=== PATIENT | female | born 1940 | race Caucasian/White ===

== ENCOUNTER 2016-04-03 10:46 | Outpatient (CLI) | payer MEDICARE, OTHER | END 2016-04-03 10:47 | disposition home or self-care (01) | DX: Z12.31 Encounter for screening mammogram for malignant neoplasm of breast (principal) ==

== ENCOUNTER 2016-07-21 08:00 | Outpatient (CLI) | payer MEDICARE, OTHER | END 2016-07-21 08:01 | DX: E78.00 Pure hypercholesterolemia, unspecified (principal) ==

== ENCOUNTER 2018-06-06 11:04 | Outpatient (CLI) | payer MEDICARE, OTHER ==
[2018-06-06] MEDS ORDERED: IOPAMIDOL-300 100 ML VIAL ONE (11:36)
[2018-06-07] MEDS ORDERED: IOPAMIDOL-300 100 ML VIAL IVP ONE (08:39)
--- NOTE | 2018-06-07 14:05 | CT Report ---
Reason: GROSS HEMATURIA Procedure Date: 06/06/2018 Accession Number: [id number] / [id number] Procedure: CT - IVP CPT Code: FULL RESULT: EXAM: CT ABDOMEN AND PELVIS WITHOUT AND WITH CONTRAST (CT IVP) EXAM DATE: 06/06/2018 12:35 PM. Noncontrast scans were performed 06/07/2018 at 1206. Exam interpreted with images from 06/06/2018. CLINICAL HISTORY: GROSS HEMATURIA. COMPARISONS: ABDOMEN/PELVIS W/ 06/06/2018 11:49 AM ABDOMEN/PELVIS W/ 03/09/2015 7:40 PM. TECHNIQUE: Routine helical imaging was performed through the kidneys, ureters and bladder in the precontrast, postcontrast and delayed phase. IV Contrast: 100 cc of Isovue-300. Reconstructions: Coronal and sagittal. In accordance with CT protocol optimization, one or more of the following dose reduction techniques were utilized for this exam: automated exposure control, adjustment of mA and/or KV based on patient size, or use of iterative reconstructive technique. FINDINGS: Lung Bases: Unremarkable. Right Kidney/Ureter: No stones or hydronephrosis. 2 cm water density cyst of the lower pole corticomedullary space. Exophytic thin-walled 1 cm cyst also water density of the anterior lower pole. There are several scattered upper and lower pole subcentimeter hypodensities, too small to characterize likely additional cysts. No enhancing solid lesions appreciated. No hydroureter. Left Kidney/Ureter: There is a 6 cm thin-walled simple cyst of the posterior lower pole and a 2.5 cm cyst of the anterior lower pole. Several subcentimeter hypodensities of the upper cortex likely additional cysts. No solid enhancing masses. No hydroureter. Other Solid Organs: The liver, spleen, pancreas, gallbladder, and adrenal glands are unremarkable.The bile ducts are unremarkable. Peritoneal Cavity/Bowel: There is colonic diverticulosis without CT evidence of diverticulitis. No free fluid, free air or adenopathy. No masses. Bowel loops are unremarkable. Pelvic Organs: No bladder stones, obstruction or masses. The visualized pelvic organs are unremarkable. Vasculature: Normal. Bones: Chronic-appearing osteoporotic compression fracture superior endplate of the L2 vertebral body is new since 2015. Stable compression fracture of T12 compared to the 2015 studies. Other: None. IMPRESSION: 1. No urinary tract masses, stones or obstruction. Simple-appearing renal cysts as described. Etiology of hematuria is not identified. RADIA
== END 2018-06-06 11:05 | disposition home or self-care (01) ==
LOC: DI 11:04
PROVIDERS: ATTEND Registered Nurse
DX: R31.0 Gross hematuria (principal); Q61.02 Congenital multiple renal cysts
CPT/HCPCS: 74178; Q9967

== ENCOUNTER 2018-07-29 13:21 | Outpatient (CLI) | payer MEDICARE, OTHER ==
--- NOTE | 2018-08-01 08:35 | Mammography Report ---
Reason: SCREENING MAMMO Procedure Date: 07/29/2018 Accession Number: [id number] / [id number] Procedure: EDY - Screening Mammo w/Pola CPT Code: FULL RESULT: EXAM: Screening Mammo w/Pola DATE: 07/29/2018 1:51 PM CLINICAL HISTORY: Screening encounter. No reported risk factors. TECHNIQUE: (B) - Bilateral CC, laterally exaggerated CC, MLO views were obtained. COMPARISON: 04/03/2016 through 09/09/2012. PARENCHYMAL PATTERN: (D) - The breast(s) demonstrate(s) heterogeneously dense fibroglandular parenchyma. FINDINGS: There are coarse typically benign calcifications. There are no suspicious masses, calcifications, or areas of distortion. IMPRESSION: Benign findings. BI-RADS category 2. RECOMMENDATION: (ANNUAL) - Recommend routine annual screening mammography. BI-RADS CATEGORY: (2) - Benign Findings. STANDARD QUALIFYING STATEMENTS: 1. This examination was not reviewed with the aid of Computer-Aided Detection (CAD). 2. A negative or benign imaging report should not preclude biopsy if clinically suspicious findings are present. 3. Dense breasts may obscure an underlying neoplasm. 4. This examination was reviewed with the aid of 3D breast imaging (tomosynthesis).
== END 2018-07-29 13:22 | disposition home or self-care (01) ==
LOC: DI 13:21
PROVIDERS: ATTEND Registered Nurse
DX: Z12.31 Encounter for screening mammogram for malignant neoplasm of breast (principal)
CPT/HCPCS: 77063; 77067

== ENCOUNTER 2018-07-29 13:21 | Outpatient (CLI) | payer MEDICARE, OTHER ==
--- NOTE | 2018-07-29 14:39 | DEXA Report ---
Reason: OSTEOPOROSIS Procedure Date: 07/29/2018 Accession Number: [id number] / [id number] Procedure: DEX - Dexa Spine and/or Hip CPT Code: FULL RESULT: EXAM: Dexa Spine and/or Hip DATE: 07/29/2018 2:07 PM CLINICAL HISTORY: OSTEOPOROSIS FOLLOW-UP TECHNIQUE: Dual energy x-ray absorptiometry (DXA) was performed on a [employer] System. Regions measured are the AP Spine, femoral neck, and if needed forearm. COMPARISON: 02/06/2016. In accordance with the International Society for Clinical Densitometry (ISCD) guidelines, data from previous exams may be reanalyzed using current recommendations and techniques. This is done to allow a more accurate basis for comparison with the current study. FINDINGS: The data for the lumbar spine is as follows: BMD (g/cm/cm) T-SCORE Z-SCORE REGION L1 0.589 -4.5 -2.5 L2 0.979 -1.8 0.1 L3 0.861 -2.8 -0.8 L4 0.972 -1.9 0.1 TOTAL 0.875 -2.5 -0.6 NOTE: All evaluable vertebrae are used for classification The data for the hip is as follows: BMD (g/cm/cm) T-SCORE Z-SCORE REGION Neck 0.612 -3.1 -0.9 TOTAL 0.541 -3.7 -1.7 NOTE: The femoral neck or total proximal femur, whichever is lowest, is used for classification. DXA RESULTS SUMMARY: Spine SCAN DATE AGE BMD CHANGE VS CHANGE VS PREVIOUS PREVIOUS % 07/29/2018 78 0[age]875 0.045* 5.4* 02/06/2016 [age] 0.830 * Denotes significant change at the 95% confidence level. Denotes dissimilar scan types or analysis methods. DXA RESULTS SUMMARY: Hip SCAN DATE AGE BMD CHANGE VS CHANGE VS PREVIOUS PREVIOUS % 07/29/2018 78 0.541 -0.036* -6.2* 02/06/2016 [age] 0.577 * Denotes significant change at the 95% confidence level. Denotes dissimilar scan types or analysis methods. IMPRESSION: THE WHO CLASSIFICATION BASED ON THE INTERNATIONAL REFERENCE STANDARD IS OSTEOPOROSIS (REFERENCE TOTAL LEFT HIP BONE MINERAL DENSITY). THE FRACTURE RISK IS HIGH. RECOMMENDATION: Patients with diagnosis of osteoporosis or osteopenia should have regular bone mineral density assessment. For those eligible for Medicare, routine testing is allowed once every 2 years. Testing frequency can be increased for patients who have rapidly progressing disease or for those who are receiving medical therapy to restore bone mass. COMMENT: World Health Organization (WHO) definitions for osteoporosis and osteopenia: NORMAL BMD: T-score at -1.0 or higher, fracture risk is low OSTEOPENIA BMD: T-score between -1.0 and -2.5, fracture risk is increased. OSTEOPOROSIS BMD: T-score at -2.5 or lower, fracture risk is high. National Osteoporosis Foundation recommends: 1. Obtain adequate dietary calcium (at least 1200 mg per day) and vitamin D (400-800 international units per day). 2. Participate, as appropriate, in regular weightbearing and muscle-strengthening exercise. 3. Avoid tobacco use and reduce alcohol and caffeine intake. 4. For more detailed information see the website at www.NOF.org.
== END 2018-07-29 13:22 | disposition home or self-care (01) ==
LOC: DI 13:21
PROVIDERS: ATTEND Registered Nurse
DX: M81.0 Age-related osteoporosis without current pathological fracture (principal)
CPT/HCPCS: 77080

== ENCOUNTER 2018-11-19 00:46 | Outpatient (CLI) | payer MEDICARE, OTHER | END 2018-11-19 00:47 | disposition critical access hospital (66) | LOC: EMS 00:46 | PROVIDERS: ATTEND Surgery | DX: R42 Dizziness and giddiness (principal) | CPT/HCPCS: A0425; A0429 ==

== ENCOUNTER 2018-11-19 01:17 | Emergency (ER) | payer MEDICARE, OTHER ==
--- NOTE | 2018-11-19 01:59 | ED Physician Documentation ---
History of Present Illness - Stated complaint Stated Complaint: DIZZY - Chief complaint Chief Complaint: Heent - History obtained from History obtained from: Patient - History of Present Illness Timing: Yesterday Pain level max: 0 Pain level now: 0 Improved by: rest (lying still) Worsened by: movement, particularly turning head to side (rotation) - Additonal information Additional information: BIBA for dizziness which patient describes as sensation of "room spinning". Patient was in yoga class yesterday morning and upon standing up, she had sudden onset of the dizziness. She thus sat back down and eventually the symptoms subsided and she was able to stand and ambulate without symptoms. The symptoms seemed to have resolved completely until tonight while she was in bed when the dizziness suddenly returned when she turned her head to the side. She had mild nausea but no vomiting. Review of Systems Constitutional: reports: Reviewed and negative Eyes: denies: Loss of vision, Decreased vision Ears: denies: Loss of hearing, Ear pain, Tinnitus/ringing Cardiac: reports: Reviewed and negative Respiratory: reports: Reviewed and negative GI: reports: Nausea. 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 : None HEENT: Other Psych: None Musculoskeletal: None Derm: None - Past Surgical History Past Surgical History: Yes General: Other Cardiovascular: AICD - Present Medications Home Medications: Ambulatory Orders Medication Instructions Recorded Confirmed Aspirin [Aspir 81] 81 mg ORAL DAILY 03/09/15 03/09/15 Clopidogrel Bisulfate [Plavix] 75 mg ORAL DAILY 03/09/15 03/09/15 Losartan [Cozaar] 25 mg ORAL DAILY 03/09/15 03/09/15 Metoprolol Tartrate [Lopressor] 37.5 mg ORAL BID 03/09/15 03/09/15 Simvastatin 20 mg ORAL QPM 03/09/15 03/09/15 Meclizine [Antivert] 25 mg PO Q6H PRN #20 tablet 11/19/18 - Allergies Allergies/Adverse Reactions: Allergies Allergy/AdvReac Type Severity Reaction Status Date / Time morphine Allergy Itching Verified 11/19/18 01:26 - Social History Does the pt smoke?: No Smoking Status: Never smoker Does the pt drink ETOH?: Yes Does the pt have substance abuse?: No - Immunizations Immunizations are current?: Yes - POLST Patient has POLST: No PD ED PE NORMAL - Vitals Vital signs reviewed: Yes - General General: Alert and oriented X 3, No acute distress, Well developed/nourished - HEENT HEENT: PERRL, EOMI, Moist mucous membranes - Neck Neck: Supple, no meningeal sign - Cardiac Cardiac: RRR, No murmur - Respiratory Respiratory: No respiratory distress, Clear bilaterally - Abdomen Abdomen: Soft, Non tender - Neuro Neuro: Alert and oriented X 3, sharemilker 2-12 intact, No motor deficit, No sensory deficit, Normal speech Results - Vitals Vitals: Vital Signs - 24 hr 11/19/18 11/19/18 11/19/18 01:23 01:35 03:01 Temperature 36.7 C Heart Rate 64 61 60 Respiratory 16 16 16 Rate Blood Pressure 132/88 H 118/88 H 115/82 H O2 Saturation 96 94 95 11/19/18 11/19/18 03:23 03:25 Temperature Heart Rate Respiratory 17 17 Rate Blood Pressure O2 Saturation Oxygen O2 Source Room air - EKG (time done) No standard instances Rate: Rate (enter#) (61) Rhythm: NSR [place]: Normal Intervals: Normal [place] QRS: Normal Ischemia: Q waves (V1-V4), T wave inversion (V2-V5, flat T V6, I, aVL) Compare to prior EKG: Unchanged from prior EKG (03/09/15) - Labs Labs: Laboratory Tests 11/19/18 11/19/18 02:38 02:38 WBC 6.4 RBC 4.31 Hgb 13.8 Hct 41.4 MCV 96.1 MCH 32.0 H MCHC 33.3 RDW 12.6 Plt Count 263 MPV 9.8 Neut # (Auto) 3.8 Lymph # (Auto) 1.5 [place] # (Auto) 0.9 Eos # (Auto) 0.2 Baso # (Auto) 0.1 Absolute Nucleated RBC 0.00 Nucleated RBC % 0.0 Sodium 139 Potassium 3.8 Chloride 106 Carbon Dioxide 24 Anion Gap 9.0 BUN 25 H Creatinine 0.6 Estimated GFR (MDRD) 97 Glucose 111 H Calcium 10.4 H - Rads (name of study) CT head Radiology: Prelim report reviewed, See rad report PD MEDICAL DECISION MAKING - ED course Complexity details: reviewed old records, reviewed results, re-evaluated patient, considered differential, d/w patient ED course: HPI strongly s/o peripheral vertigo and she reported resolution of symptoms after PO antivert. CT head unremarkable (h/o CVA), and blood tests were also reassuring (no significant abnormalities) Departure - Departure Disposition: 01 Home, Self Care Clinical Impression: Vertigo Condition: Good Instructions: Meclizine, ED Vertigo Unspecified Follow-Up: Carolina Blunt ARNP [Primary Care Provider] - Prescriptions: Meclizine [Antivert] 25 mg PO Q6H PRN #20 tablet PRN Reason: Vertigo Comments: In addition to the prescribed medication (meclizine), you can try the Jagruti maneuver if you have more episodes of vertigo. There are several good internet videos on how you can perform this maneuver at home. One example can be found by searching on youtube "[facility] right jagruti". There is also a left jagruti video. You should perform the maneuver according to which side the vertigo is worse (ie- if the vertigo is worse when you turn your head to the right, perform the right jagruti maneuver, or vice-versa). Discharge Date/Time: 11/19/18 04:00
[2018-11-19] MEDS ORDERED: MECLIZINE 12.5 MG TABLET PO STA (02:12)
[2018-11-19 02:46] LABS: BASOPHILS # (AUTO) 0.1 10^3/uL (0.0-0.1); BASOPHILS % (AUTO) 0.8 %; EOSINOPHILS # (AUTO) 0.2 10^3/uL (0.0-0.7); EOSINOPHILS % (AUTO) 2.8 %; HGB - HEMOGLOBIN 13.8 g/dL (12.0-16.0); LYMPHOCYTES # (AUTO) 1.5 10^3/uL (1.5-3.5); LYMPHOCYTES % (AUTO) 22.6 %; MEAN CORPUSCULAR HGB CONC 33.3 g/dL (32.0-36.0); MEAN CORPUSCULAR VOLUME 96.1 fL (81.0-99.0); MEAN PLATELET VOLUME 9.8 fL (7.9-10.8); MONOCYTES # (AUTO) 0.9 10^3/uL (0.0-1.0); MONOCYTES % (AUTO) 13.8 %; NEUTROPHILS # (AUTO) 3.8 10^3/uL (1.5-6.6); NEUTROPHILS % (AUTO) 59.7 %; PLT - PLATELET COUNT 263 10^3/uL (130-450); RED BLOOD COUNT 4.31 10^6/uL (4.20-5.40); RED CELL DISTRIBUTION WIDTH 12.6 % (12.0-15.0); WHITE BLOOD COUNT 6.4 x10^3/uL (4.8-10.8)
--- NOTE | 2018-11-19 02:48 | CT Report ---
Reason: dizziness Procedure Date: 11/19/2018 Accession Number: [id number] / [id number] Procedure: CT - HEAD WO CPT Code: FULL RESULT: EXAM: CT HEAD EXAM DATE: 11/19/2018 02:35 AM. CLINICAL HISTORY: Dizziness. COMPARISON: None. TECHNIQUE: Multiaxial CT images were obtained from the foramen magnum to the vertex. Reformats: Sagittal and coronal. IV contrast: None. In accordance with CT protocol optimization, one or more of the following dose reduction techniques were utilized for this exam: automated exposure control, adjustment of mA and/or KV based on patient size, or use of iterative reconstructive technique. FINDINGS: Parenchyma: No intraparenchymal hemorrhage. No evidence of mass, midline shift, or CT findings of acute infarction. Stearns-white differentiation is distinct. Mild atrophy and chronic microangiopathic white matter changes are evident. Small focal area of encephalomalacia is present along genu of corpus callosum, possibly related to remote infarct. Extraaxial Spaces: Normal for age. No subdural or epidural collections identified. Ventricles: The ventricles and cortical sulci are enlarged, consistent with age-related tissue loss. Sinuses and orbits: Imaged paranasal sinuses, orbits, and mastoids show no significant abnormality. Bones: No evidence of fracture or calvarial defect. Other: None. IMPRESSION: 1. No evidence of acute intracranial abnormality. 2. Age-related atrophy and chronic microangiopathic white matter changes. RADIA
[2018-11-19 02:54] LABS: CALCIUM 10.4 mg/dL (8.5-10.3); CREATININE 0.6 mg/dL (0.4-1.0)
[2018-11-19 03:03] VITALS: BP 115/82
== END 2018-11-19 04:00 | disposition home or self-care (01) ==
LOC: EDUNIT# → ED 01:17
DX: R42 Dizziness and giddiness (principal)
CPT/HCPCS: 36415; 70450; 80048; 85025; 93005; 99284; A9270

== ENCOUNTER 2019-09-22 12:14 | Outpatient (CLI) | payer MEDICARE, OTHER ==
--- NOTE | 2019-09-25 09:29 | Mammography Report ---
BILATERAL DIGITAL SCREENING MAMMOGRAM 3D/2D: 09/22/2019 CLINICAL: Routine screening. Comparison is made to exams dated: 07/29/2018 mammogram, 04/03/2016 mammogram, and 03/04/2015 mammogram - [facility]. The tissue of both breasts is heterogeneously dense. This may lower t he sensitivity of mammography. No significant masses, calcifications, or other findings are seen in either breast. There has been no significant interval change. IMPRESSION: NEGATIVE There is no mammographic evidence of malignancy. A 1 year screening mammogram is recommended. This exam was interpreted at Station ID: [id number]. NOTE: For mammograms, a report in lay terms will be sent to the patient. Approximately 15% of breast malignancies will not be visualized mammographically. In the management of a palpable breast mass, a negative mammogram must not discourage biopsy of a clinically suspicious lesion. Electronically Signed By: Hannah aguilar/alta:09/22/2019 13:54:52 ACR BI-RADS Category 1: Negative 3341F PARENCHYMAL PATTERN: (D) - The breast(s) demonstrate(s) heterogeneously dense fibroglandular stewart smith. BI-RADS CATEGORY: (1) - 1 RECOMMENDATION: (ANNUAL) - Recommend routine annual screening mammography. [id number] 1 year screening LATERALITY: (B)
== END 2019-09-22 12:15 | disposition home or self-care (01) ==
LOC: DI 12:14
PROVIDERS: ATTEND Physician Assistant
DX: Z12.31 Encounter for screening mammogram for malignant neoplasm of breast (principal)
CPT/HCPCS: 77063; 77067

== ENCOUNTER 2020-08-02 12:49 | Outpatient (CLI) | payer MEDICARE, OTHER ==
--- NOTE | 2020-08-02 15:55 | DEXA Report ---
PROCEDURE: Dexa Spine and/or Hip INDICATIONS: OSTEOPOROSIS TECHNIQUE: Dual energy x-ray absorptiometry (DXA) was performed on a [employer] System. Regions measur ed are the AP Spine, femoral neck, and if needed forearm. COMPARISON: DEXA, 07/29/2018. FINDINGS: Lumbar Spine: Bone Mineral Density 0.857 g/cm/cm,T score -2.7. Left Hip: Bone Mineral Density 0.576 g/cm/cm,T score -3.4. Left Femoral Neck: Bone Mineral Density 0.602 g/cm/cm, T score -3.1. (T score greater or equal to -1.0: NORMAL) (T score from -1.1 to -2.4: OSTEOPENIA) (T score less than or equal to -2.5 to: OSTEOPOROSIS) Impression: Based on WHO criteria, the patient is osteoporotic. Compared to the last exam on 07/30/19 19, the bone mineral density of the lumbar spine is not significantly changed. The bone mineral densi ty of the left hip is improved. Patients with diagnosis of osteoporosis or osteopenia should have regular bone mineral density assess ment. For those eligible for Medicare, routine testing is allowed once every 2 years. Testing frequ ency can be increased for patients who have rapidly progressing disease or for those who are receivin g medical therapy to restore bone mass. Reviewed by: Mel Quintero MD on 08/02/2020 3:54 PM PDT Approved by: Mel Quintero MD on 08/02/2020 3:54 PM PDT Station ID: [id number]
== END 2020-08-02 12:50 | disposition home or self-care (01) ==
LOC: DI 12:49
PROVIDERS: ATTEND Registered Nurse
DX: M81.0 Age-related osteoporosis without current pathological fracture (principal)

== ENCOUNTER 2020-10-11 10:17 | Outpatient (CLI) | payer MEDICARE, OTHER ==
[2020-10-11 10:51] LABS: ALBUMIN 4.3 g/dL (3.2-5.5); ALBUMIN/GLOBULIN RATIO 1.5 (1.0-2.2); ALKALINE PHOSPHATASE 69 IU/L (42-121); ALT ALANINE AMINOTRANSFERASE 27 IU/L (10-60); AST ASPARTATE AMINOTRANSFERASE 27 IU/L (10-42); BILIRUBIN,TOTAL 0.9 mg/dL (0.2-1.0); BUN - BLOOD UREA NITROGEN 15 mg/dL (6-20); CALCIUM 9.3 mg/dL (8.5-10.3); CARBON DIOXIDE - CO2 28 mmol/L (21-32); CHLORIDE 103 mmol/L (101-111); CHOL/HDL RATIO 2.3 (<4.4); CHOLESTEROL 149 mg/dL; CREATININE 0.7 mg/dL (0.4-1.0); GFR - MDRD 81 (>89); GLUCOSE 100 mg/dL (70-100); HDL CHOLESTEROL 65 mg/dL; LDL CHOLESTEROL,CALCULATED 75 mg/dL; LDL/HDL RATIO 1.2 (<4.4); POTASSIUM 3.8 mmol/L (3.5-5.0); SODIUM 139 mmol/L (135-145); TOTAL PROTEIN 7.1 g/dL (6.7-8.2); TRIGLYCERIDES 45 mg/dL; VLDL CHOLESTEROL 9 mg/dL
== END 2020-10-11 10:18 | disposition home or self-care (01) ==
LOC: LAB 10:17
PROVIDERS: ATTEND Registered Nurse
DX: I25.2 Old myocardial infarction (principal)
CPT/HCPCS: 36415; 80053; 80061; 83721

== ENCOUNTER 2020-12-24 11:08 | Emergency (ER) | payer MEDICARE, OTHER ==
--- NOTE | 2020-12-24 12:12 | XRAY Report ---
PROCEDURE: Chest 1 View X-Ray INDICATIONS: Chest pain TECHNIQUE: One view of the chest was acquired. COMPARISON: None FINDINGS: Surgical changes and devices: 2-lead left chest wall cardiac pacing device. Lungs and pleura: No pleural effusions or pneumothorax. Lungs are clear. Mediastinum: Mediastinal contours appear normal. Heart size is normal. Bones and chest wall: No suspicious bony lesions. Overlying soft tissues appear unremarkable. IMPRESSION: No acute cardiopulmonary process demonstrated radiographically. Reviewed by: Chan Suárez MD on 12/24/2020 12:10 PM PDT Approved by: Chan Suárez MD on 12/24/2020 12:10 PM PDT Station ID: [id number]
[2020-12-24 12:23] LABS: BASOPHILS % (AUTO) 0.5 %; EOSINOPHILS % (AUTO) 0.5 %; HCT - HEMATOCRIT 43.1 % (37.0-47.0); HGB - HEMOGLOBIN 14.2 g/dL (12.0-16.0); LYMPHOCYTES # (AUTO) 0.9 10^3/uL (1.5-3.5); LYMPHOCYTES % (AUTO) 11.3 %; MEAN CORPUSCULAR HGB CONC 32.9 g/dL (32.0-36.0); MEAN CORPUSCULAR VOLUME 97.1 fL (81.0-99.0); MEAN PLATELET VOLUME 9.8 fL (7.9-10.8); MONOCYTES # (AUTO) 0.8 10^3/uL (0.0-1.0); MONOCYTES % (AUTO) 10.5 %; NEUTROPHILS # (AUTO) 5.9 10^3/uL (1.5-6.6); NEUTROPHILS % (AUTO) 77.1 %; PLT - PLATELET COUNT 289 10^3/uL (130-450); RED BLOOD COUNT 4.44 10^6/uL (4.20-5.40); RED CELL DISTRIBUTION WIDTH 12.7 % (12.0-15.0); WHITE BLOOD COUNT 7.7 x10^3/uL (4.8-10.8)
--- NOTE | 2020-12-24 12:29 | ED Physician Documentation ---
PD HPI CHEST PAIN - Stated complaint Stated Complaint: LT SIDE PX/SOA - Chief complaint Chief Complaint: Cardiac - History obtained from History obtained from: Patient - Additional information Additional information: Constant L sided pain near breast since yesterday. Lateral chest wall. Worse with activity, anthony twisting. More so than exertion. Some improvement with tylenol. Worse after yoga. Worse with laying down. Hx PA x 2 (age 35) and CVA 2014 with AICD. 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 : None HEENT: Other Psych: None Musculoskeletal: None Derm: None - Past Surgical History Past Surgical History: Yes General: Other Cardiovascular: AICD - Present Medications Home Medications: Ambulatory Orders Medication Instructions Recorded Confirmed Aspirin [Aspir 81] 81 mg ORAL DAILY 03/09/15 03/09/15 Clopidogrel Bisulfate [Plavix] 75 mg ORAL DAILY 03/09/15 03/09/15 Losartan [Cozaar] 25 mg ORAL DAILY 03/09/15 03/09/15 Metoprolol Tartrate [Lopressor] 37.5 mg ORAL BID 03/09/15 03/09/15 Simvastatin 20 mg ORAL QPM 03/09/15 03/09/15 Meclizine [Antivert] 25 mg PO Q6H PRN #20 tablet 11/19/18 Lidocaine Patch 5% [Lidoderm Patch] 1 patch TOP DAILY PRN #10 patch 12/24/20 - Allergies Allergies/Adverse Reactions: Allergies Allergy/AdvReac Type Severity Reaction Status Date / Time morphine Allergy Itching Verified 12/24/20 11:18 - Social History Does the pt smoke?: No Smoking Status: Never smoker Does the pt drink ETOH?: Yes Does the pt have substance abuse?: No - Immunizations Immunizations are current?: Yes - POLST Patient has POLST: No PD ED PE NORMAL - Vitals Vital signs reviewed: Yes - General General: Alert and oriented X 3, No acute distress - Cardiac Cardiac: RRR, No murmur - Respiratory Respiratory: No respiratory distress, Clear bilaterally, Other (Tender L chest wall) - Abdomen Abdomen: Normal bowel sounds, Soft, Non tender - Back Back: No CVA TTP, No spinal TTP - Derm Derm: Normal color, Warm and dry - Extremities Extremities: No edema, No calf tenderness / cord - Neuro Neuro: Alert and oriented X 3, Normal speech Results - Vitals Vitals: Vital Signs - 24 hr 12/24/20 12/24/20 11:13 11:51 Temperature 36.3 C L Heart Rate 75 67 Respiratory 15 19 Rate Blood Pressure 127/82 H 127/85 H O2 Saturation 98 97 Oxygen O2 Source Room air - EKG (time done) 1242 Rate: Rate (enter#) (59) Rhythm: NSR (w pvc) [place]: Normal Intervals: Normal [place] QRS: Normal Ischemia: Non specific changes - Labs Labs: Laboratory Tests 12/24/20 12/24/20 12/24/20 12:07 12:07 12:07 WBC 7.7 RBC 4.44 Hgb 14.2 Hct 43.1 MCV 97.1 MCH 32.0 H MCHC 32.9 RDW 12.7 Plt Count 289 MPV 9.8 Neut # (Auto) 5.9 Lymph # (Auto) 0.9 L [place] # (Auto) 0.8 Eos # (Auto) 0.0 Baso # (Auto) 0.0 Absolute Nucleated RBC 0.00 Nucleated RBC % 0.0 Sodium 140 Potassium 3.6 Chloride 106 Carbon Dioxide 26 Anion Gap 8.0 BUN 15 Creatinine 0.6 Estimated GFR (MDRD) 96 Glucose 100 Calcium 10.5 H Total Bilirubin 1.1 H AST 31 ALT 32 Alkaline Phosphatase 85 Troponin I High Sens 4.9 Total Protein 7.2 Albumin 4.4 Globulin 2.8 Albumin/Globulin Ratio 1.6 Lipase 67 H - Rads (name of study) 1v cxr Radiology: EMP read contemporaneously (NAD) PD MEDICAL DECISION MAKING - ED course ED course: 80-year-old woman with chest pain that is very far lateral and associated with motion more than exertion and reproducible on palpation suggesting a muscular cause. Diagnostics are without evidence of acute ischemia and given the time course of 24 hours or so of constant symptoms this is sufficient to adequately rule her out despite her risk factors and age. Departure - Departure Disposition: 01 Home, Self Care Clinical Impression: Chest wall pain Condition: Good Record reviewed to determine appropriate education?: Yes Instructions: ED Strain Chest Wall Prescriptions: Lidocaine Patch 5% [Lidoderm Patch] 1 patch TOP DAILY PRN #10 patch PRN Reason: pain Comments: Call your doctor to arrange a follow-up appointment, make the next available appointment. In the interim, return anytime if worse or if new symptoms develop.
[2020-12-24 12:42] LABS: ALBUMIN 4.4 g/dL (3.2-5.5); ALBUMIN/GLOBULIN RATIO 1.6 (1.0-2.2); BILIRUBIN,TOTAL 1.1 mg/dL (0.2-1.0); CALCIUM 10.5 mg/dL (8.5-10.3); CREATININE 0.6 mg/dL (0.4-1.0); POTASSIUM 3.6 mmol/L (3.5-5.0); TOTAL PROTEIN 7.2 g/dL (6.7-8.2)
[2020-12-24 13:04] VITALS: BP 125/74
== END 2020-12-24 13:06 | disposition home or self-care (01) ==
LOC: ED 11:08
DX: R07.89 Other chest pain (principal); I49.3 Ventricular premature depolarization; I25.2 Old myocardial infarction; Z95.810 Presence of automatic (implantable) cardiac defibrillator; Z86.73 Personal history of transient ischemic attack (TIA), and cerebral infarction without residual deficits; Z79.02 Long term (current) use of antithrombotics/antiplatelets; Z79.82 Long term (current) use of aspirin
CPT/HCPCS: 36415; 80053; 83690; 84484; 85025; 93005; 99283; 99284

== ENCOUNTER 2022-08-27 10:46 | Outpatient (CLI) | payer MEDICARE, OTHER ==
[2022-08-27 11:02] LABS: BASOPHILS # (AUTO) 0.1 10^3/uL (0.0-0.1); BASOPHILS % (AUTO) 0.7 %; EOSINOPHILS # (AUTO) 0.3 10^3/uL (0.0-0.7); EOSINOPHILS % (AUTO) 2.9 %; HCT - HEMATOCRIT 44.2 % (37.0-47.0); HGB - HEMOGLOBIN 14.2 g/dL (12.0-16.0); LYMPHOCYTES # (AUTO) 1.5 10^3/uL (1.5-3.5); LYMPHOCYTES % (AUTO) 17.5 %; MEAN CORPUSCULAR HEMOGLOBIN 31.4 pg (27.0-31.0); MEAN CORPUSCULAR HGB CONC 32.1 g/dL (32.0-36.0); MEAN CORPUSCULAR VOLUME 97.8 fL (81.0-99.0); MEAN PLATELET VOLUME 9.5 fL (7.9-10.8); MONOCYTES # (AUTO) 1.1 10^3/uL (0.0-1.0); MONOCYTES % (AUTO) 12.7 %; NEUTROPHILS # (AUTO) 5.7 10^3/uL (1.5-6.6); NEUTROPHILS % (AUTO) 65.9 %; PLT - PLATELET COUNT 355 10^3/uL (130-450); RED BLOOD COUNT 4.52 10^6/uL (4.20-5.40); RED CELL DISTRIBUTION WIDTH 12.3 % (12.0-15.0); WHITE BLOOD COUNT 8.6 x10^3/uL (4.8-10.8)
[2022-08-27 11:13] LABS: INR 1.6 (0.8-1.2); PT - PROTHROMBIN TIME 17.1 secs (9.9-12.6)
[2022-08-27 11:14] LABS: CALCIUM 9.7 mg/dL (8.5-10.3); CREATININE 0.7 mg/dL (0.4-1.0)
== END 2022-08-27 10:47 | disposition home or self-care (01) ==
LOC: LAB 10:46
PROVIDERS: ATTEND Internal Medicine
DX: Z45.02 Encounter for adjustment and management of automatic implantable cardiac defibrillator (principal)
CPT/HCPCS: 36415; 80048; 85025; 85610

== ENCOUNTER 2022-12-24 13:22 | Outpatient (CLI) | payer MEDICARE, OTHER ==
--- NOTE | 2022-12-24 14:34 | XRAY Report ---
PROCEDURE: Lumbar Spine 2 View INDICATIONS: LUMBAR SPINE OSTEOARTHRITIS TECHNIQUE: 3 views of the lumbar spine were acquired. COMPARISON: Prior CT performed on 06/06/2018 FINDINGS: Bones: 5 [id number] vertebrae are present. Rightward curvature of the thoracolumbar spine. Com pression fractures of T12, L2, and L4. The compression fracture of L2 is unchanged compared to 2019. The T12 and L4 compression fractures are new compared to 2019. Disc space narrowing at L5-S1 with end plate sclerosis. There is normal bony alignment. No vertebral body compression fractures. No suspic ious bony lesions. Soft tissues: Overlying bowel gas pattern is normal. No suspicious soft tissue calcifications. IMPRESSION: 1. Multilevel degenerative changes and facet arthropathy. 2. Compression fractures of T12 and L4 of indeterminate age. 3. Remote compression fracture of L2. 4. Degenerative disc disease most severe at L5-S1. Reviewed by: Manny Hanks on 12/24/2022 2:33 PM PDT Approved by: Manny Hanks on 12/24/2022 2:33 PM PDT Station ID: [id number]
== END 2022-12-24 23:59 | disposition home or self-care (01) ==
LOC: DI.S 13:22
PROVIDERS: ATTEND Emergency Medicine
DX: M47.816 Spondylosis without myelopathy or radiculopathy, lumbar region (principal); M48.54XA Collapsed vertebra, not elsewhere classified, thoracic region, initial encounter for fracture; M48.56XA Collapsed vertebra, not elsewhere classified, lumbar region, initial encounter for fracture; M51.37 Other intervertebral disc degeneration, lumbosacral region

== ENCOUNTER 2023-02-16 10:48 | Outpatient (CLI) | payer MEDICARE, OTHER ==
--- NOTE | 2023-02-16 16:42 | DEXA Report ---
PROCEDURE: Dexa Spine and/or Hip INDICATIONS: OSTEOPOROSIS TECHNIQUE: Dual energy x-ray absorptiometry (DXA) was performed on a [employer] System. Regions measur ed are the AP Spine, femoral neck, and if needed forearm. COMPARISON: 08/02/2020, 07/29/2018, 02/06/2016 FINDINGS: Lumbar Spine: Bone Mineral Density 0.837 g/cm/cm,T score -2.9. There has been no statistically significant change in bone mineral density since the prior study. Left Femoral Neck: Bone Mineral Density 0.619 g/cm/cm, T score -3.1. Left Hip: Bone Mineral Density 0.540 g/cm/cm,T score -3.7. Since the most recent prior study, there has been a statistically significant decrease in bone mineral density by 6.3 percent. (T score greater or equal to -1.0: NORMAL) (T score from -1.1 to -2.4: OSTEOPENIA) (T score less than or equal to -2.5 to: OSTEOPOROSIS) Impression: By WHO criteria, this patient has osteoporosis. No statistical interval change in bone minteral density of the lumbar spine. Interval statistical dec rease in bone minteral density of the hip. Patients with diagnosis of osteoporosis or osteopenia should have regular bone mineral density assess ment. For those eligible for Medicare, routine testing is allowed once every 2 years. Testing frequ ency can be increased for patients who have rapidly progressing disease or for those who are receivin g medical therapy to restore bone mass. Reviewed by: Trae Fox on 02/16/2023 4:41 PM PST Approved by: Trae Fox on 02/16/2023 4:41 PM PST Station ID: [id number]
== END 2023-02-16 10:49 | disposition home or self-care (01) ==
LOC: DI 10:48
PROVIDERS: ATTEND Registered Nurse
DX: M81.0 Age-related osteoporosis without current pathological fracture (principal)

== ENCOUNTER 2023-06-26 09:56 | Outpatient (CLI) | payer MEDICARE, OTHER | END 2023-06-26 23:59 | disposition left against medical advice (07) | LOC: EMS 09:56 | DX: R51.9 Headache, unspecified (principal); S00.81XA Abrasion of other part of head, initial encounter; M25.511 Pain in right shoulder; W10.9XXA Fall (on) (from) unspecified stairs and steps, initial encounter; Y93.01 Activity, walking, marching and hiking; Y92.019 Unspecified place in single-family (private) house as the place of occurrence of the external cause; Z79.01 Long term (current) use of anticoagulants ==

== ENCOUNTER 2023-06-26 11:21 | Emergency (ER) | payer MEDICARE, OTHER ==
--- NOTE | 2023-06-26 12:39 | XRAY Report ---
PROCEDURE: Shoulder 2+V RT INDICATIONS: fall proximal humerus pain TECHNIQUE: 3 views of the shoulder were acquired. COMPARISON: None. FINDINGS: Bones: No fractures or dislocations. Moderate acromioclavicular joint and glenohumeral joint osteoa rthritic changes are seen. No suspicious bony lesions. Visualized ribs appear intact. Soft tissues: No suspicious soft tissue calcifications. The visualized lungs are within normal limi ts. IMPRESSION: No gross acute shoulder fracture or dislocation. 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 No gross soft tissue abnormalities. Reviewed by: Cody Jack MD on 06/26/2023 12:38 PM PDT Approved by: Cody Jack MD on 06/26/2023 12:38 PM PDT Station ID: [id number]
--- NOTE | 2023-06-26 12:42 | CT Report ---
PROCEDURE: Cervical Spine WO INDICATIONS: fall head injury neck pain TECHNIQUE: Noncontrast 3 mm thick sections acquired from the skull base to the T4 level. Sagittal and coronal r eformats were then constructed. For radiation dose reduction, the following was used: automated exp osure control, adjustment of mA and/or kV according to patient size. COMPARISON: None. FINDINGS: Image quality: Excellent. Bones: No fractures or dislocations. Moderate degenerative endplate changes, loss of disc height an d bilateral facet hypertrophic changes are noted throughout cervical spine with dorsal disc osteophyt e complex formation causing [id number] central canal stenosis and bilateral neural foraminal na rrowing more notably at C4-5 through C6-7 levels. Visualized superior ribs are intact. Soft tissues: Prevertebral soft tissues are normal in thickness. No paravertebral hematomas. No ap ical pneumothoraces. IMPRESSION: 1. No acute cervical spine fracture or dislocation. 2. Degenerative disc disease throughout cervical spine as above. Reviewed by: Cody Jack MD on 06/26/2023 12:41 PM PDT Approved by: Cody Jack MD on 06/26/2023 12:41 PM PDT Station ID: [id number]
--- NOTE | 2023-06-26 12:43 | CT Report ---
PROCEDURE: Head WO INDICATIONS: fall head injury R front eliquist TECHNIQUE: Noncontrast 4.5 mm thick angled axial sections acquired from the foramen magnum to the vertex. For r adiation dose reduction, the following was used: automated exposure control, adjustment of mA and/or kV according to patient size. COMPARISON: 11/19/2018 FINDINGS: Image quality: Excellent. CSF spaces: Basal cisterns are patent. No extra-axial fluid collections. The ventricles are symmet laurence in size and shape. Brain: No intracranial bleeds or masses. There is cerebral volume loss for age, with resultant vent ricular and sulcal prominence. There are periventricular and deep white matter chronic small vessel ischemic changes. There is intracranial internal carotid artery atherosclerosis. Skull and face: Calvarium and visualized facial bones appear intact, without suspicious lesions. Sinuses: Visualized sinuses and mastoids are clear. IMPRESSION: 1. No CT evidence of acute intracranial abnormalities. 2. Age-related volume loss and moderate white matter chronic small vessel ischemic changes. 3. No acute skull fracture. Reviewed by: Cody Jack MD on 06/26/2023 12:42 PM PDT Approved by: Cody Jack MD on 06/26/2023 12:42 PM PDT Station ID: [id number]
--- NOTE | 2023-06-26 12:49 | ED Physician Documentation ---
PD HPI Fall - Stated complaint Stated Complaint: GLF - Chief complaint Chief Complaint: Trauma Hd/Nk - History obtained from History obtained from: Patient, Family, EMS - History of Present Illness Mechanism of injury: Tripped Fall distance: Standing position Where injury occurred: Home Timing - onset: Today Injury(ies) location: Head, Face, Chest, Right Upper Extremity Quality of pain: Pain Associated symptoms: No: LOC, AMS, Amnesia, Seizures, Ear drainage, Nasal drainage, Neck pain, Weakness, Paresthesias, Dyspnea, Nausea / vomiting, Hematemesis, Abdominal distension Symptoms improve with: Rest Worsens with: Movement, Palpation Contributing factors: Anticoagulated. No: Intoxicated Similar symptoms before: Has not had sx before Recently seen: Not recently seen - Additional information Additional information: Citlaly north is an 82-year-old female on Eliquis for atrial fibrillation was had a fall down 3 wooden steps landing on her right side. She has a bruise to her head she did not lose consciousness. She has pain to her right shoulder and she is in a sling. She has pain to her right ribs. She has some pain in the right leg as well above and below the knee into the soft tissue she is able to walk without difficulty. She pushed her [employer] and her friend showed up at her house followed by EMS personnel. They evaluated patient at the home and she appeared well enough to come to the emergency department with her friend. She arrived here by private auto. She denies shortness of breath. She has pain with deep inspiration and she has pain with any movement of her left right arm. Review of Systems Constitutional: denies: Fever Eyes: denies: Decreased vision Ears: denies: Ear pain Nose: denies: Rhinorrhea / runny nose, Congestion Throat: denies: Sore throat Cardiac: reports: Chest pain / pressure. 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 : None HEENT: Other Psych: None Musculoskeletal: None Derm: None - Past Surgical History Past Surgical History: Yes General: Other Cardiovascular: AICD - Present Medications Home Medications: Ambulatory Orders Medication Instructions Recorded Confirmed Aspirin [Aspir 81] 81 mg ORAL DAILY 03/09/15 03/09/15 Losartan [Cozaar] 25 mg ORAL DAILY 03/09/15 03/09/15 Metoprolol Tartrate [Lopressor] 37.5 mg ORAL BID 03/09/15 03/09/15 Simvastatin 20 mg ORAL QPM 03/09/15 03/09/15 Meclizine [Antivert] 25 mg PO Q6H PRN #20 tablet 11/19/18 Lidocaine Patch 5% [Lidoderm Patch] 1 patch TOP DAILY PRN #10 patch 12/24/20 Apixaban [Eliquis] 5 mg PO BID 06/26/23 06/26/23 HYDROcod/ACETAM 5/325 [[place] 5/325] 1 - 2 tablet PO Q6H PRN #14 tablet 06/26/23 - Allergies Allergies/Adverse Reactions: Allergies Allergy/AdvReac Type Severity Reaction Status Date / Time morphine Allergy Itching Verified 06/26/23 11:45 - Social History Does the pt smoke?: No Smoking Status: Never smoker Does the pt drink ETOH?: Yes Does the pt have substance abuse?: No - Immunizations Immunizations are current?: Yes - POLST Patient has POLST: No PD ED PE NORMAL - Vitals Vital signs reviewed: Yes (normal ) - General General: Alert and oriented X 3, No acute distress, Well developed/nourished - HEENT HEENT: Atraumatic, PERRL - Neck Neck: Supple, no meningeal sign, Other (mild tenderness to the neck posterioly ) - Cardiac Cardiac: RRR, No murmur - Respiratory Respiratory: No respiratory distress, Clear bilaterally, Other (point tenderness to the lateral chest wall on the right side. point tenderness to the right scapula and pain with movement of right arm. ) - Abdomen Abdomen: Soft, Non tender - Back Back: No CVA TTP, No spinal TTP - Derm Derm: Normal color, Warm and dry, No rash - Extremities Extremities: No deformity, No edema, Other (tenderness to the right shoulder especially over the right scapula and pain with any movement of the shoulder joint. No crepitance or step off to the proximal humerus. 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, No motor deficit, No sensory deficit, Normal speech Eye Opening: Spontaneous Motor: Obeys Commands Verbal: Oriented GCS Score: 15 - Psych Psych: Normal mood, Normal affect Results - Vitals Vitals: Vital Signs - 24 hr 06/26/23 06/26/23 06/26/23 11:36 12:54 13:00 Temperature 36.7 C Heart Rate 64 68 69 Respiratory 18 19 17 Rate Blood Pressure 110/72 114/77 126/71 O2 Saturation 96 92 94 06/26/23 06/26/23 06/26/23 13:30 14:00 14:45 Temperature 37.2 C Heart Rate 70 69 72 Respiratory 18 21 18 Rate Blood Pressure 126/85 H 123/78 131/80 H O2 Saturation 93 94 96 Oxygen O2 Source Room air - Rads (name of study) shoulder R Relevant Findings:: Prelim report reviewed (Impression: No gross acute shoulder fracture or dislocation. Moderate acromioclavicular joint and glenohumeral joint osteoarthritis. No gross soft tissue abnormalities.), EMP independent interpretation of test CT cervical spine Relevant Findings:: Prelim report reviewed (Impression: 1. No acute cervical spine fracture or dislocation. Degenerative disc disease throughout the cervical spine as above.), EMP independent interpretation of test CThead Relevant Findings:: Prelim report reviewed (Impression: 1. No CT evidence of acute intracranial abnormalities. Age-related volume loss and moderate white matter chronic small vessel ischemic changes. No acute skull fracture.), EMP independent interpretation of test PD Medical Decision Making - ED course Complexity details: reviewed old records, reviewed results, re-evaluated patient, considered differential, d/w patient, d/w family Reviewed Lab Results: Impression: 1. Comminuted and slightly displaced right scapular body fracture. 2 no displaced rib fractures. Subtle contour irregularity involving posterior lateral eighth and ninth rib concerning for age-indeterminate fractures. 3. Biapical scarring, atelectasis versus contusion in the posterior and lateral aspect of the right lower lobe near the right lung base. Additional scarring/atelectasis also seen in the anterior aspect of bilateral lung bases. No pleural effusion or pneumothorax. 4. No mediastinal hematoma cardiomegaly no pericardial effusion pacemaker leads in place. ED course: Citlaly north is an 82-year-old female who has had a fall in her home this morning injuring her right shoulder and back. She is on Eliquis, fell hit her head and we obtained CT scan of the head without evidence of intracranial hemorrhage. She has pain mostly to her right shoulder and right chest wall. She has pain with any movement of her right shoulder and this appears to be over the scapula which is fractured. We considered admission to the hospital with 2 rib fractures. The rib fractures are nondisplaced and the patient is not dyspneic. We did obtain incentive spirometry and the patient did quite well on this blowing over 500. This was reassuring that the patient will do well with her pulmonary toilet.We provided some analgesia with Tylenol at her request and this helped somewhat. We further provided narcotic pain reliever in the form of oxycodone. She is wanting to get a hospital bed and physical therapy for healing. We have consulted social work. She has a friend that can stay with her. Departure - Departure Disposition: 01 Home, Self Care Clinical Impression: Scapular fracture Qualifiers: Encounter type: initial encounter Scapula location: body Fracture type: closed Fracture alignment: displaced Laterality: right Qualified Code(s): S42.111A - Displaced fracture of body of scapula, right shoulder, initial encounter for closed fracture Closed traumatic nondisplaced fracture of two ribs of right side Qualifiers: Encounter type: initial encounter Qualified Code(s): S22.41XA - Multiple fractures of ribs, right side, initial encounter for closed fracture Closed head injury Qualifiers: Encounter type: initial encounter Qualified Code(s): S09.90XA - Unspecified injury of head, initial encounter Condition: Stable Instructions: ED Fx Rib, ED Head Injury Closed, ED Fx Shoulder, ED Contusion Vs Minor Fx Rib Follow-Up: Carolina Blunt ARNP [Primary Care Provider] - Chris Vu MD [Provider Admit Priv/Credential] - Prescriptions: HYDROcod/ACETAM 5/325 [[place] 5/325] 1 - 2 tablet PO Q6H PRN #14 tablet PRN Reason: Pain Comments: Citlaly, today it looks like you have some nondisplaced rib fractures and a fractured scapula. It looks like the scapula is giving you most of the problem. We have placed you into a sling and as we discussed an important part of the treatment of this is for you to remove your arm from the sling several times daily, bend to the side and do some range of motion exercises with your shoulder. It is recommended to do this after you have taken your pain medication. You may have a peak in your pain in the right chest at about day #5, and if you are having difficulty with breathing come back to see us in the emergency department. You may need more aggressive pain control. A follow-up with the orthopedic doctor for the fractured scapula is also indicated and I have given you his name. Forms: PCP List Discharge Date/Time: 06/26/23 14:59
[2023-06-26] MEDS: ACETAMINOPHEN 325 MG TABLET PO STA (12:51)
--- NOTE | 2023-06-26 13:02 | CT Report ---
PROCEDURE: Chest WO INDICATIONS: fall R rib pain soa TECHNIQUE: A CT scan of the chest was performed. Intravenous contrast media was not administered. Images were re corded and evaluated at appropriate window settings. Reformats: axial MIP of the chest, coronal and s agittal. For radiation dose reduction, the following was used: automated exposure control, adjustment of mA and/or kV according to patient size. COMPARISON: CT IVP dated 06/06/2018. FINDINGS: Image quality: Diagnostic. Chest wall and lower neck: No thyroid nodule which requires sonographic follow up. No axillary or sup raclavicular adenopathy by size. Left chest wall pacemaker is seen. Lungs and pleura: There is biapical scarring. Scattered atelectasis in posterior aspect of right lowe r lobe near right lung base is seen. Linear scarring/atelectasis in anterior medial aspect of bilater al lung bases also seen. No pleural effusion. No pneumothorax. Central and peripheral airway is paten t. Mediastinum: Heart size is enlarged. No pericardial effusion. Pacemaker leads are seen in right atriu m and right ventricle. No large vessel abnormality. No mediastinal adenopathy by size criteria. No m ediastinal hematoma. There is a small hiatal hernia. Bones: No aggressive osseous abnormality. Comminuted and minimally displaced fracture through right s capular body is seen. Age indeterminant deformity involving right posterior eighth and ninth rib frac ture is seen with subtle contour irregularity, suggest clinical correlation. Upper Abdomen: Multiple bilateral renal cysts are seen measures up to 5.5 x 4.3 cm in size in posteri or cortex of mid pole left kidney. These are unchanged from prior study. IMPRESSION: 1. Comminuted and slightly displaced right scapular body fracture. 2. No displaced rib fractures. Subtle contour irregularity involving posterior lateral eighth and bruce th rib concerning for age-indeterminate fractures. 3. Biapical scarring. Atelectasis versus contusion in posterior and lateral aspect of right lower lob e near right lung base. Additional scarring/atelectasis also seen in anterior aspect of bilateral dhruv g bases. No pleural effusion or pneumothorax. 4. No mediastinal hematoma. Cardiomegaly, no pericardial effusion. Pacemaker leads in place. Reviewed by: Cody Jack MD on 06/26/2023 1:01 PM PDT Approved by: Cody Jack MD on 06/26/2023 1:01 PM PDT Station ID: [id number]
[2023-06-26] MEDS: oxyCODONE 5 MG TABLET PO STA (13:51)
[2023-06-26 14:59] VITALS: BP 131/80; O2SAT 96
== END 2023-06-26 14:59 | disposition home or self-care (01) ==
LOC: ED 11:21
DX: S22.41XA Multiple fractures of ribs, right side, initial encounter for closed fracture (principal); S42.111A Displaced fracture of body of scapula, right shoulder, initial encounter for closed fracture; S09.90XA Unspecified injury of head, initial encounter; W10.9XXA Fall (on) (from) unspecified stairs and steps, initial encounter; Y92.009 Unspecified place in unspecified non-institutional (private) residence as the place of occurrence of the external cause; I48.91 Unspecified atrial fibrillation; Z79.01 Long term (current) use of anticoagulants
CPT/HCPCS: 36415; 70450; 71250; 72125; 73030; 99284; A9270